=== PATIENT | female | born 1990 | race American Indian/Alaskan Native ===

== ENCOUNTER 2018-07-03 22:36 | Emergency (ER) | payer OTHER ==
--- NOTE | 2018-07-03 22:49 | Emergency Department Report ---
Blank Doc - Documentation Documentation: LIAO started 2 days ago. Recently started on BC, Iron, Ibuprofen. Blurry vision, Photophobia. This initial assessment diagnostic orders/clinical plan/treatment (s) is/Are subject change based on patient's health status, clinical progression and re- assessment by fellow clinical providers in the ED. Further treatment and work-up at subsequent clinical providers discretion. Patient/guardians urged not to elope from their condition may be serious if not clinically assessed and managed. Initial order include:
[2018-07-03 23:32] LABS: HCG Qualitative,Urine Negative (Negative)
--- NOTE | 2018-07-04 00:59 | Cat Scan Report ---
PROCEDURE: CT HEAD/BRAIN WO CON TECHNIQUE: Computerized tomography of the head was performed without contrast material. CT DOSE LENGTH PRODUCT: mGycm HISTORY: LIAO with blurry vision COMPARISONS: None . FINDINGS: Skull and scalp: Normal . Paranasal sinuses: Normal . Ventricles and subarachnoid spaces: Normal . Cerebrum: No evidence of hemorrhage, acute infarction or mass . Cerebellum and brainstem: No evidence of hemorrhage, acute infarction or mass . Vasculature: Normal . IMPRESSION: Normal Examination . This document is electronically signed by Pankaj Castaneda MD., July 04 2018 12:57:16 AM ET
[2018-07-04] MEDS ORDERED: NACL 0.9% 1000 ML 1,000 ML IV ONE (02:17)
[2018-07-04] MEDS ORDERED: BENADRYL IV ONE (02:17)
[2018-07-04] MEDS ORDERED: REGLAN IV ONE (02:17)
[2018-07-04] MEDS ORDERED: DECADRON IV ONE (02:17)
[2018-07-04 02:51] VITALS: BP 150/81
--- NOTE | 2018-07-04 03:12 | Emergency Department Report ---
ED Headache HPI - General Chief Complaint: Headache Stated Complaint: ALLERGIC REACTION Time Seen by Provider: 07/04/18 02:02 Source: patient Exam Limitations: no limitations - History of Present Illness Initial Comments: Patient's is a 28 y/o aaf with hx of asthma headache who presents for frontal headache for 2 days headache rated at 7/10 frontal does not radiate, pt states pain is intermittent exacerbated by movement andf actiivity there is associated photophobia blurred vision , pt denies fall inury or trauma, there is no fever or chills no Timing/Duration: 1 week, unknown Quality: moderate Head Injury Location: frontal Recent Head Trauma: no recent headache/trauma, occasional headaches Modifying Factors: improves with: other (none) Associated Symptoms: fever/chills, seizures, sinus infection. denies: denies symptoms, fatigue, loss of consciousness, nausea/vomiting, nasal congestion, nasal drainage, stiff neck, vision changes, weakness Allergies/Adverse Reactions: Allergies coconut Allergy (Verified 07/03/18 22:54) Hives cyclobenzaprine [From Flexeril] Allergy (Verified 07/03/18 22:53) Anaphylaxis apolinar Allergy (Verified 07/03/18 22:54) Swelling Home Medications: Ambulatory Orders Acetaminophen [Tylenol Extra Strength] 1,000 mg PO QID PRN #30 tablet 07/04/18 Amoxicillin/Potassium Clav [Augmentin 875-125 Tablet] 1 each PO BID #20 tablet 07/04/18 Metoclopramide [Reglan] 10 mg PO ACHS #30 tablet 07/04/18 diphenhydrAMINE [Benadryl CAP] 25 mg PO Q8HR PRN #30 capsule 07/04/18 predniSONE [Deltasone] 40 mg PO QDAY #10 tab 07/04/18 ED Review of Systems ROS: Stated complaint: ALLERGIC REACTION Other details as noted in HPI Constitutional: denies: chills, fever Eyes: denies: eye pain, eye discharge, vision change ENT: denies: ear pain, throat pain Respiratory: denies: cough, shortness of breath, wheezing Cardiovascular: denies: chest pain, palpitations Endocrine: no symptoms reported Gastrointestinal: denies: abdominal pain, nausea, vomiting, diarrhea, constipation, hematemesis, hematochezia Genitourinary: hematuria. denies: urgency, dysuria, discharge Musculoskeletal: denies: back pain, arthralgia, myalgia Skin: as per HPI Neurological: as per HPI Psychiatric: as per HPI Hematological/Lymphatic: denies: easy bleeding, easy bruising ED Past Medical Hx - Past Medical History Hx Asthma: Yes Additional medical history: Irregular menses - Surgical History Additional Surgical History: Left rotator cuff - Social History Smoking Status: Never Smoker Substance Use Type: None - Medications Home Medications: Home Medications Medication Instructions Recorded Confirmed Last Taken Type Acetaminophen [Tylenol Extra 1,000 mg PO QID PRN #30 tablet 07/04/18 Unknown Rx Strength] Amoxicillin/Potassium Clav 1 each PO BID #20 tablet 07/04/18 Unknown Rx [Augmentin 875-125 Tablet] Metoclopramide [Reglan] 10 mg PO ACHS #30 tablet 07/04/18 Unknown Rx diphenhydrAMINE [Benadryl CAP] 25 mg PO Q8HR PRN #30 capsule 07/04/18 Unknown Rx predniSONE [Deltasone] 40 mg PO QDAY #10 tab 07/04/18 Unknown Rx ED Physical Exam - General Limitations: No Limitations General appearance: alert, in no apparent distress - Head Head exam: Present: atraumatic, normocephalic - Eye Eye exam: Present: normal appearance, PERRL, EOMI (O), periorbital swelling - ENT ENT exam: Present: mucous membranes dry, mucous membranes moist, normal external ear exam (no) - Expanded ENT Exam Expanded Ear exam: Present: auricular hematoma Mouth exam: Present: normal external inspection. Absent: trismus Teeth exam: Present: normal inspection Throat exam: Positive: normal inspection, tonsillar erythema. Negative: tonsillomegaly - Neck Neck exam: Present: normal inspection, meningismus. Absent: lymphadenopathy - Respiratory Respiratory exam: Present: normal lung sounds bilaterally. Absent: respiratory distress, wheezes (was a), stridor, chest wall tenderness, accessory muscle use, decreased breath sounds, prolonged expiratory - Cardiovascular Cardiovascular Exam: Present: regular rate, normal rhythm, normal heart sounds. Absent: systolic murmur, diastolic murmur, rubs, gallop - GI/Abdominal GI/Abdominal exam: Present: soft (both), normal bowel sounds. Absent: distended, tenderness, mass, bruit, pulsatile mass - Rectal Rectal exam: Present: deferred - Extremities Exam Extremities exam: Present: normal inspection, full ROM, tenderness, normal capillary refill. Absent: pedal edema, joint swelling - Back Exam Back exam: Present: normal inspection, full ROM. Absent: tenderness, CVA tenderness (R), CVA tenderness (L), muscle spasm, paraspinal tenderness, vertebral tenderness, rash noted - Neurological Exam Neurological exam: Present: alert, oriented X3 - Psychiatric Psychiatric exam: Present: normal affect (physical this month), normal mood - Skin Skin exam: Present: warm (l), dry, intact, normal color. Absent: rash ED Course Vital Signs 07/03/18 07/04/18 22:46 02:50 Temperature 98.6 F 98.6 F Pulse Rate 75 85 Respiratory 20 16 Rate Blood Pressure 138/96 Blood Pressure 150/81 [Left] O2 Sat by Pulse 100 100 Oximetry ED Medical Decision Making - Radiology Data Radiology results: report reviewed, image reviewed PROCEDURE: CT HEAD/BRAIN WO CON TECHNIQUE: Computerized tomography of the head was performed without contrast material. CT DOSE LENGTH PRODUCT: mGycm HISTORY: LIAO with blurry vision COMPARISONS: None . FINDINGS: Skull and scalp: Normal . Paranasal sinuses: Normal . Ventricles and subarachnoid spaces: Normal . Cerebrum: No evidence of hemorrhage, acute infarction or mass . Cerebellum and brainstem: No evidence of hemorrhage, acute infarction or mass . Vasculature: Normal . IMPRESSION: Normal Examination . This document is electronically signed by Ofe Meneses MD., July 04 2018 12:57:16 AM ET Transcribed By: CO Dictated By: OFE MENESES MD Electronically Authenticated By: OFE MENESES MD Signed Date/Time: 07/04/1858 DD/ TD/TT: 07/04/18 0044 - Medical Decision Making this is sinus headache with sinusitis , ct: neg for bleed mass or fracture, pain is improved rom intact photophobia is relived plan dc to home with rx for augmentin, benadryl, reglan, tyelnol, pt will follow u with pcp in 2-3 work pt verbalized agreement and understanding of discharge plan. Critical care attestation.: If time is entered above; I have spent that time in minutes in the direct care of this critically ill patient, excluding procedure time. ED Disposition Clinical Impression: Sinus headache Sinusitis Qualifiers: Sinusitis location: frontal Chronicity: acute Recurrence: recurrent Qualified Code(s): J01.11 - Acute recurrent frontal sinusitis Disposition: TO HOME OR SELFCARE Is pt being admited?: No Does the pt Need Aspirin: No Condition: Stable Instructions: Sinusitis (ED), Acute Headache (ED) Prescriptions: Acetaminophen [Tylenol Extra Strength] 1,000 mg PO QID PRN #30 tablet PRN Reason: Headache Amoxicillin/Potassium Clav [Augmentin 875-125 Tablet] 1 each PO BID #20 tablet diphenhydrAMINE [Benadryl CAP] 25 mg PO Q8HR PRN #30 capsule PRN Reason: Headache Metoclopramide [Reglan] 10 mg PO ACHS #30 tablet predniSONE [Deltasone] 40 mg PO QDAY #10 tab [facility] - [facility]5 Days Forms: Work/School Release Form(ED) Time of Disposition: 03:34
== END 2018-07-04 03:56 | disposition home or self-care (01) ==
LOC: ED 22:36
DX: J32.1 Chronic frontal sinusitis (principal); J45.909 Unspecified asthma, uncomplicated; Z91.018 Allergy to other foods; Z88.8 Allergy status to other drugs, medicaments and biological substances
CPT/HCPCS: 70450; 81025; 96374; 96375; 99284; J1100; J1200; J2765; J7030

== ENCOUNTER 2018-10-31 13:53 | Emergency (ER) | payer OTHER ==
--- NOTE | 2018-10-31 14:04 | Event Note ---
ED Screening Note Date of service: 10/31/18 Time: 14:00 ED Screening Note: This is a 28 y.o. F. that presents to the ER with sore throat, cough, and loss vocals since yesterday. PMH of asthma Her sister was sick and possibly caught something. This initial assessment/diagnostic orders/clinical plan/treatment(s) is/are subject to change based on patients health status, clinical progression and re- assessment by fellow clinical providers in the ED. Further treatment and workup at subsequent clinical providers discretion. Patient/guardian urged not to elope from the ED as their condition may be serious if not clinically assessed and managed. Initial orders include: ACC for further evaluation
[2018-10-31] MEDS ORDERED: DUONEB *Not for PRN Use IH ONE (15:50)
--- NOTE | 2018-10-31 16:49 | Emergency Department Report ---
- General Chief Complaint: Adult Asthma Stated Complaint: ASTHMATIC/CHEST PAIN/COUGH/FEVER Time Seen by Provider: 10/31/18 13:59 Source: patient Mode of arrival: Ambulatory Limitations: No Limitations - History of Present Illness Initial Comments: Patient is a 28-year-old female with a past medical history of asthma who states that she is having a cough and congestion for the past 2-3 days. Patient states that she's had shortness of breath and sore throat. Patient states the pain is worse when she swallows. Patient states she feels that she's lost her voice cannot speak very well. She denies any nausea vomiting diarrhea Or stiffness at this time. Patient states that she's had some chills but has not taken objective temperature. - Related Data Previous Rx's Medication Instructions Recorded Last Taken Type Acetaminophen [Tylenol Extra 1,000 mg PO QID PRN #30 tablet 07/04/18 Unknown Rx Strength] Amoxicillin/Potassium Clav 1 each PO BID #20 tablet 07/04/18 Unknown Rx [Augmentin 875-125 Tablet] Metoclopramide [Reglan] 10 mg PO ACHS #30 tablet 07/04/18 Unknown Rx diphenhydrAMINE [Benadryl CAP] 25 mg PO Q8HR PRN #30 capsule 07/04/18 Unknown Rx predniSONE [Deltasone] 40 mg PO QDAY #10 tab 07/04/18 Unknown Rx ALBUTEROL Inhaler (OR & NICU) 2 puff IH QID PRN #1 inhalation 10/31/18 Unknown Rx [ProAir HFA Inhaler] Azithromycin [Zithromax Z-NEVAEH] 250 mg PO DAILY #6 tablet 10/31/18 Unknown Rx Benzonatate [Tessalon Perles] 100 mg PO Q8HR #10 capsule 10/31/18 Unknown Rx predniSONE [Deltasone] 20 mg PO QDAY #5 tab 10/31/18 Unknown Rx traMADol [Ultram] 50 mg PO Q6HR PRN #12 tablet 10/31/18 Unknown Rx Allergies Allergy/AdvReac Type Severity Reaction Status Date / Time coconut Allergy Hives Verified 10/31/18 13:57 cyclobenzaprine Allergy Anaphylaxis Verified 10/31/18 13:57 [From Flexeril] apolinar Allergy Swelling Verified 10/31/18 13:57 ED Review of Systems ROS: Stated complaint: ASTHMATIC/CHEST PAIN/COUGH/FEVER Other details as noted in HPI Comment: All other systems reviewed and negative ED Past Medical Hx - Past Medical History Hx Asthma: Yes Additional medical history: Irregular menses - Surgical History Additional Surgical History: Left rotator cuff - Social History Smoking Status: Never Smoker - Medications Home Medications: Home Medications Medication Instructions Recorded Confirmed Last Taken Type Acetaminophen [Tylenol Extra 1,000 mg PO QID PRN #30 tablet 07/04/18 Unknown Rx Strength] Amoxicillin/Potassium Clav 1 each PO BID #20 tablet 07/04/18 Unknown Rx [Augmentin 875-125 Tablet] Metoclopramide [Reglan] 10 mg PO ACHS #30 tablet 07/04/18 Unknown Rx diphenhydrAMINE [Benadryl CAP] 25 mg PO Q8HR PRN #30 capsule 07/04/18 Unknown Rx predniSONE [Deltasone] 40 mg PO QDAY #10 tab 07/04/18 Unknown Rx ALBUTEROL Inhaler (OR & NICU) 2 puff IH QID PRN #1 inhalation 10/31/18 Unknown Rx [ProAir HFA Inhaler] Azithromycin [Zithromax Z-NEVAEH] 250 mg PO DAILY #6 tablet 10/31/18 Unknown Rx Benzonatate [Tessalon Perles] 100 mg PO Q8HR #10 capsule 10/31/18 Unknown Rx predniSONE [Deltasone] 20 mg PO QDAY #5 tab 10/31/18 Unknown Rx traMADol [Ultram] 50 mg PO Q6HR PRN #12 tablet 10/31/18 Unknown Rx ED Physical Exam - General Limitations: No Limitations General appearance: alert, in no apparent distress - Head Head exam: Present: atraumatic, normocephalic - Eye Eye exam: Present: normal appearance - ENT ENT exam: Present: mucous membranes moist - Expanded ENT Exam Expanded Mouth exam: Present: tongue normal. Absent: tongue elevation Throat exam: Positive: tonsillar erythema. Negative: tonsillomegaly, tonsillar exudate - Neck Neck exam: Present: normal inspection - Respiratory Respiratory exam: Present: normal lung sounds bilaterally, prolonged expiratory. Absent: respiratory distress, wheezes, rales, rhonchi - Cardiovascular Cardiovascular Exam: Present: regular rate, normal rhythm, normal heart sounds. Absent: systolic murmur, diastolic murmur, rubs, gallop - GI/Abdominal GI/Abdominal exam: Present: soft, normal bowel sounds. Absent: distended, tenderness, guarding, rebound - Extremities Exam Extremities exam: Present: normal inspection - Back Exam Back exam: Present: normal inspection - Neurological Exam Neurological exam: Present: alert, oriented X3 - Psychiatric Psychiatric exam: Present: normal affect, normal mood - Skin Skin exam: Present: warm, dry, intact, normal color. Absent: rash ED Course Vital Signs 10/31/18 10/31/18 13:59 16:43 Temperature 99.4 F Pulse Rate 85 74 Respiratory 20 17 Rate Blood Pressure 147/95 Blood Pressure 119/83 [Right] O2 Sat by Pulse 100 100 Oximetry ED Medical Decision Making - Radiology Data Radiology results: report reviewed (CXR WNL) - Medical Decision Making Patient is given a breathing treatment for symptom relief. Patient will be discharged home with treatment for tonsillitis and acute bronchitis Critical care attestation.: If time is entered above; I have spent that time in minutes in the direct care of this critically ill patient, excluding procedure time. ED Disposition Clinical Impression: Acute upper respiratory infection, Acute bacterial tonsillitis Disposition: DC-01 TO HOME OR SELFCARE Is pt being admited?: No Does the pt Need Aspirin: No Condition: Stable Instructions: Acute Bronchitis (ED) Referrals: AUBRIE EUCEDA MD [Primary Care Provider] - 3-5 Days
--- NOTE | 2018-10-31 17:01 | XRay Report ---
PROCEDURE: XR CHEST ROUTINE 2V TECHNIQUE: PA and lateral chest radiographs were obtained. HISTORY: cough COMPARISONS: None. FINDINGS: Heart: Normal. Mediastinum/Vessels: Normal. Lungs/Pleural space: Normal. Bony thorax: No acute osseous abnormality. IMPRESSION: Normal examination. This document is electronically signed by Jose G Gaming MD., October 31 2018 04:59:06 PM ET
[2018-10-31 17:14] VITALS: BP 110/69
== END 2018-10-31 17:12 | disposition home or self-care (01) ==
LOC: ED 13:53
DX: J06.9 Acute upper respiratory infection, unspecified (principal); J03.90 Acute tonsillitis, unspecified; J45.909 Unspecified asthma, uncomplicated; Z79.899 Other long term (current) drug therapy; Z88.8 Allergy status to other drugs, medicaments and biological substances; Z91.018 Allergy to other foods
CPT/HCPCS: 71046; 94640; 99283

== ENCOUNTER 2018-11-28 10:35 | Emergency (ER) | payer OTHER ==
--- NOTE | 2018-11-28 11:02 | Emergency Department Report ---
Upper Extremity - HPI Chief Complaint: Shoulder Injury Stated Complaint: R SHOULDER PAIN Time Seen by Provider: 11/28/18 10:49 Other History: Patient is a 28-year-old female who presents to emergency room with complaints of right shoulder pain that began a week ago. she states that one morning she just woke up with the pain. She denies any fall or injury. She does not report any numbness or weakness. She currently has her arm in a sling. Pt was seen by [facility] and states she had a normal XR of her shoulder yesterday. she states she was given ibuprofen 800 mg and zanflex and she is still having pain. she states she is not able to see an orthopedic doctor until december. she states that she had rotator cuff surgery on the left shoulder. the patient states that she does do heavy lifting weekly. LNMP november 13. PMHx asthma. allergy: flexeril. ED Review of Systems ROS: Stated complaint: R SHOULDER PAIN Other details as noted in HPI Comment: All other systems reviewed and negative ED Past Medical Hx - Past Medical History Previous Medical History?: Yes Hx Asthma: Yes Additional medical history: Irregular menses - Surgical History Past Surgical History?: Yes Additional Surgical History: Left rotator cuff - Social History Smoking Status: Never Smoker Substance Use Type: None - Medications Home Medications: Home Medications Medication Instructions Recorded Confirmed Last Taken Type Acetaminophen [Tylenol Extra 1,000 mg PO QID PRN #30 tablet 07/04/18 Unknown Rx Strength] Amoxicillin/Potassium Clav 1 each PO BID #20 tablet 07/04/18 Unknown Rx [Augmentin 875-125 Tablet] Metoclopramide [Reglan] 10 mg PO ACHS #30 tablet 07/04/18 Unknown Rx diphenhydrAMINE [Benadryl CAP] 25 mg PO Q8HR PRN #30 capsule 07/04/18 Unknown Rx predniSONE [Deltasone] 40 mg PO QDAY #10 tab 07/04/18 Unknown Rx ALBUTEROL Inhaler (OR & NICU) 2 puff IH QID PRN #1 inhalation 10/31/18 Unknown Rx [ProAir HFA Inhaler] Azithromycin [Zithromax Z-NEVAEH] 250 mg PO DAILY #6 tablet 10/31/18 Unknown Rx Benzonatate [Tessalon Perles] 100 mg PO Q8HR #10 capsule 10/31/18 Unknown Rx predniSONE [Deltasone] 20 mg PO QDAY #5 tab 10/31/18 Unknown Rx traMADol [Ultram] 50 mg PO Q6HR PRN #12 tablet 10/31/18 Unknown Rx Acetaminophen/Codeine [Tylenol 1 tab PO Q6H PRN #12 tab 11/28/18 Unknown Rx /Codeine # 3 tab] Upper Extremity Exam - Exam General: Vital signs noted. No distress. Alert and acting appropriately. Head and Torso: No HEENT Abnormality, No Neck Tenderness, No Chest/Lungs Abnormality Shoulder Exam: Yes Shoulder Tenderness (pt has TTP throughout the right shoulder), Yes Normal Range of Motion in Shoulder, No Clavicle Tenderness, No Shoulder Deformity, No AC Joint Tenderness Arm Exam: No Arm/Humerus Tenderness, No Arm Deformity Elbow: Yes Normal Range of Motion in Elbow, No Elbow Tenderness, No Elbow Deformity Forearm: No Forearm Tenderness, No Forearm Deformity, No Pain with Pronation, No Pain with Supination Wrist: Yes Normal ROM in Wrist, No Wrist Tenderness, No Wrist Deformity, No Snuffbox Tenderness, No Pain with Axial Thumb Compression Hand: Yes Normal ROM in Digit(s), No Hand Tenderness, No Hand Deformity, No Digit Tenderness, No Digit(s) Deformity, No Tendon Dysfunction CMS Exam: Yes Normal Distal Pulses, Yes Normal Capillary Refill, Yes Normal Distal Sensation, No Broken Skin ED Course Vital Signs 11/28/18 10:42 Temperature 98.3 F Pulse Rate 62 Respiratory 18 Rate Blood Pressure 137/99 O2 Sat by Pulse 100 Oximetry ED Medical Decision Making - Medical Decision Making Patient is a 28-year-old female who presents to emergency room with complaints of right shoulder pain that began a week ago. she states that one morning she just woke up with the pain. She denies any fall or injury. She does not report any numbness or weakness. She currently has her arm in a sling. Pt was seen by [facility] and states she had a normal XR of her shoulder yesterday. she states she was given ibuprofen 800 mg and zanflex and she is still having pain. she states she is not able to see an orthopedic doctor until december. she states that she had rotator cuff surgery on the left shoulder. the patient states that she does do heavy lifting weekly. LNMP november 13. PMHx asthma. allergy: flexeril. on exam: pt has TTP throughout the right shoulder, FROM of the right shoulder, neurovascularly intact. pt given prescription for tylenol with codeine for severe pain. advised to only use when pain is severe and the ibuprofen 800 mg is not working. discussed to please take medication as prescribed. do not drive or operate heavy machinery while taking pain medication. follow up with an orthopedic doctor in the next 2-3 days. return to the emergency room for any new or worsening symptoms. - Differential Diagnosis strain, sprain, rotator cuff, tendonitis Critical care attestation.: If time is entered above; I have spent that time in minutes in the direct care of this critically ill patient, excluding procedure time. ED Disposition Clinical Impression: Right shoulder pain Qualifiers: Chronicity: acute Qualified Code(s): M25.511 - Pain in right shoulder Disposition: - TO HOME OR SELFCARE Is pt being admited?: No Does the pt Need Aspirin: No Condition: Stable Instructions: Shoulder Sprain (ED) Additional Instructions: please take medication as prescribed. do not drive or operate heavy machinery while taking pain medication. follow up with an orthopedic doctor in the next 2- 3 days. return to the emergency room for any new or worsening symptoms. Prescriptions: Acetaminophen/Codeine [Tylenol /Codeine # 3 tab] 1 tab PO Q6H PRN #12 tab PRN Reason: Pain , Severe (7-10) Referrals: SOBIA MADISON MD [Staff Physician] - 2-3 Days Time of Disposition: 11:02 Print Language: GREENLAND[place]
[2018-11-28 11:27] VITALS: BP 134/90
== END 2018-11-28 11:19 | disposition home or self-care (01) ==
LOC: ED 10:35
DX: M25.511 Pain in right shoulder (principal); J45.909 Unspecified asthma, uncomplicated
CPT/HCPCS: 99282

== ENCOUNTER 2020-12-01 10:34 | Emergency (ER) | payer OTHER ==
[2020-12-01 11:32] VITALS: BP 139/86
--- NOTE | 2020-12-01 14:02 | Emergency Department Report ---
ED Headache HPI - General Chief Complaint: Headache Stated Complaint: HEADACHE/NAUSEA/BP 161/80 Time Seen by Provider: 12/01/20 13:28 Source: patient - History of Present Illness Initial Comments: 30-year-old female with past medical history of hypotension and asthma presents to the ER today with complaints of headache and dizziness. Patient states that she has been having a headache for the past 5 days. She states that the headache is frontal and radiates down to the occipital aspect of her head and down into her neck and she is also having similar headaches to the left parietal head. She states that the headache has been intermittent and she describes it as pressure. She reports associated photophobia and she states that yesterday she started with dizziness. She described as a spinning se nsation with associated nausea. She states that the dizziness is worse when she moves her head or when she stands up and walk but improves when she is at rest. She denies any history of headaches. She states she has a history of allergies for which she takes Claritin and Flonase but denies any denies any recent significant URI symptoms, fever or chills. She denies any blurry vision, speech changes, or focal weakness. She states that when her headache first started, her aunt gave her Excedrin which did improve the headache but she did not continue taking the Excedrin. She did take Tylenol Saturday night before going to bed but did not notice if it helped because she went straight to bed but when she woke up the next day she continued to have the headache. She states that while she was at work this morning they checked her blood pressure and it was 161/80. She denies any known history of hypertension. She states that she struck her head accidentally about 2 weeks ago when she was at work. She states that she struck the top of her head on a metal shelf when she was moving from a bending to standing position. She states that at that time she did not have any symptoms and there was no LOC. She also reports that this morning she started having sharp tingling pain in her chest but underneath both breasts. She states they seem to be hurt worse when she touches the area when she moves. She has a history of asthma and has chronic shortness of breath with asthma denies any worsening asthma symptoms or shortness of breath since this started. She reports no calf pain or lower extremity swelling. She denies any history of heart disease, PE or DVT. Timing/Duration: other (5 days ago ) Quality: moderate, pressure Allergies/Adverse Reactions: Allergies coconut Allergy (Verified 12/01/20 11:28) Hives cyclobenzaprine [From Flexeril] Allergy (Verified 10/31/18 13:57) Anaphylaxis apolinar Allergy (Verified 12/01/20 11:28) Swelling Home Medications: Ambulatory Orders Albuterol Mdi (or & Nicu Only) [ProAir HFA Inhaler] 2 puff IH QID PRN #1 inhalation 10/31/18 Butalb/Acetamin/Caff 50-325-40 [Fioricet 50-325-40] 1 tab PO Q6HR PRN #15 tab 12/01/20 Meclizine [Antivert] 25 mg PO TID PRN #30 tablet 12/01/20 Ondansetron [Zofran Odt] 4 mg PO Q8HR PRN #15 tab.rapdis 12/01/20 ED Review of Systems ROS: Stated complaint: HEADACHE/NAUSEA/BP 161/80 Other details as noted in HPI Comment: All other systems reviewed and negative Constitutional: denies: chills, fever Eyes: denies: eye pain, eye discharge, vision change ENT: denies: ear pain, throat pain, dental pain, hearing loss, epistaxis, congestion Respiratory: denies: cough, orthopnea, shortness of breath, SOB with exertion, SOB at rest, wheezing Cardiovascular: chest pain. denies: palpitations, dyspnea on exertion, orthopnea, edema, syncope, paroxysmal nocturnal dyspnea Gastrointestinal: denies: abdominal pain, nausea, diarrhea, constipation, hematemesis, hematochezia Genitourinary: denies: urgency, dysuria, frequency, hematuria, discharge, abnormal menses, dyspareunia Musculoskeletal: denies: back pain, joint swelling, arthralgia, myalgia Skin: denies: rash, lesions, change in color, change in hair/nails, pruritus Neurological: headache, vertigo. denies: weakness, numbness, paresthesias Psychiatric: denies: anxiety, depression, auditory hallucinations, visual hallucinations, homicidal thoughts, suicidal thoughts Hematological/Lymphatic: denies: easy bleeding, easy bruising, swollen glands ED Past Medical Hx - Past Medical History Hx Asthma: Yes Additional medical history: Irregular menses - Surgical History Additional Surgical History: Left rotator cuff - Social History Smoking Status: Never Smoker Substance Use Type: None - Medications Home Medications: Home Medications Medication Instructions Recorded Confirmed Last Taken Type Albuterol Mdi (or & Nicu Only) 2 puff IH QID PRN #1 inhalation 10/31/18 Unknown Rx [ProAir HFA Inhaler] Butalb/Acetamin/Caff 50-325-40 1 tab PO Q6HR PRN #15 tab 12/01/20 Unknown Rx [Fioricet 50-325-40] Meclizine [Antivert] 25 mg PO TID PRN #30 tablet 12/01/20 Unknown Rx Ondansetron [Zofran Odt] 4 mg PO Q8HR PRN #15 tab.rapdis 12/01/20 Unknown Rx ED Physical Exam - General Limitations: No Limitations General appearance: alert, in no apparent distress - Head Head exam: Present: atraumatic, normocephalic, normal inspection - Eye Eye exam: Present: normal appearance, PERRL, EOMI Pupils: Present: normal accommodation, other (+ Photophobia) - ENT ENT exam: Present: normal exam, mucous membranes moist, TM's normal bilaterally - Neck Neck exam: Present: normal inspection, full ROM. Absent: meningismus - Respiratory Respiratory exam: Present: normal lung sounds bilaterally, chest wall tenderness (Tenderness to palpation to the chest wall underneath both breast reproducing her chest pain). Absent: respiratory distress, wheezes, rales, rhonchi, stridor - Cardiovascular Cardiovascular Exam: Present: regular rate, normal rhythm, normal heart sounds - GI/Abdominal GI/Abdominal exam: Present: soft. Absent: distended, tenderness, guarding, rebound - Extremities Exam Extremities exam: Present: normal inspection, full ROM. Absent: tenderness, calf tenderness - Neurological Exam Neurological exam: Present: alert, oriented X3, CN II-XII intact, normal gait. Absent: motor sensory deficit - Expanded Neurological Exam Expanded Patient oriented to: Present: person, place, time Speech: Present: fluid speech Cranial nerves: EOM's Intact: Normal, Gag Reflex: Normal Sensory exam: Upper Extremity Light Touch: Normal, Upper Extremity Temperature: Normal, Lower Extremity Light Touch: Normal, Lower Extremity Temperature: Normal Motor strength exam: RUE: 5, LUE: 5, RLE: 5, LLE: 5 Best Eye Response (Jeremy): (4) open spontaneously Best Motor Response (Pax): (6) obeys commands Best Verbal Response (Pax): (5) oriented Jeremy Total: 15 - Psychiatric Psychiatric exam: Present: normal affect, normal mood - Skin Skin exam: Present: intact ED Course Vital Signs 12/01/20 11:31 Temperature 98.9 F Pulse Rate 89 Respiratory 18 Rate Blood Pressure 139/86 O2 Sat by Pulse 100 Oximetry ED Medical Decision Making - Lab Data Result diagrams: 12/01/20 14:18 12/01/20 14:18 - EKG Data EKG shows normal: sinus rhythm (77) Rate: normal - EKG Data Interpretation: normal EKG - Radiology Data Radiology results: report reviewed Patient: WAYLON QUIÑONES MR#: [id number] : 1990 A cct:[id number] Age/Sex: 30 / F ADM Date: 12/01/20 Loc: ED Attending Dr: Ordering Physician: ANTHONY SALOMON Date of Service: 12/01/20 Procedure(s): XR chest routine 2V Accession Number(s): [id number] cc: ANTHONY SALOMON Fluoro Time In Minutes: XR chest routine 2V INDICATION / CLINICAL INFORMATION: Chest pain COMPARISON: October 2018 FINDINGS: SUPPORT DEVICES: None. HEART / MEDIASTINUM: No significant abnormality. LUNGS / PLEURA: Lungs are clear. Costophrenic sulci are sharp. No pneumothorax. ADDITIONAL FINDINGS: No significant additional findings. IMPRESSION: 1. No acute findings. Signer Name: Oracio Ramirez MD Signed: 12/01/2020 3:41 PM Workstation Name: [id number] Transcribed By: CS Dictated By: Oracio Ramirez MD Electronically Authenticated By: Oracio Ramirez MD Signed Date/Time: 12/01/20 154 DD/ 39 TD/TT: - Medical Decision Making 1643; patient currently resting comfortably in the bed. She does not appear to be in any acute distress. Patient has been observed ambulating in the ER with a normal gait. She has no focal neurological deficits on exam. She is not toxic or ill-appearing. Her vital signs are stable. Labs reviewed and unremarkable. EKG shows no acute ischemic changes, STEMI or significant dysrhythmias. Chest x-ray shows nothing acute. Discussed all results with patient. Suspect that headache could be related to migraines and her dizziness could be related to vertigo which can be triggered by her eustachian tube dysfunction from allergies and does have reproducible chest tenderness and therefore I suspect that her ch est pain is more musculoskeletal at this time. Patient had a similar complaint back in July 2018 when she was seen here. Review of that visit showed that she had a head CT which was negative and she was discharged home in stable condition. There is no indication for repeat CT at this time. Her history, exam, diagnostic testing and the patient's current condition does not suggest meningitis, stroke, sepsis, subarachnoid hemorrhage, intracranial bleeding, encephalitis, PE/ACS or other significant pathology to warrant further testing, continued ED treatment, admission, neurological/cardiology consultation or other specialist evaluation at this point. I recommend to patient that she needs to follow-up with primary care doctor as well as a neurologist especially if her symptoms persist or becomes recurrent and frequent. She may also need to see ENT specialist. Patient expressed understanding of instructions and agree with plan. Patient was stable at time of discharge. Critical care attestation.: If time is entered above; I have spent that time in minutes in the direct care of this critically ill patient, excluding procedure time. ED Disposition Clinical Impression: Vertigo, Headache, Migraine, Eustachian tube dysfunction, Chest wall pain Disposition: DC-01 TO HOME OR SELFCARE Is pt being admited?: No Does the pt Need Aspirin: No Condition: Stable Instructions: Migraine Headache, [id number], Eustachian Tube Dysfunction, Dizziness, [id number], Nonspecific Chest Pain, Adult, Chest Wall Pain Additional Instructions: Take the fioricet and nausea as prescribed to help with headache and nausea.. Take the meclizine as needed for dizziness. I recommend that you continue taking your claritin at night and flonase in morning. You can Nasacort nasal spray from [id number] since you have been using the Flonase for a while. Follow-up with the primary care doctor and also the neurologist listed on your discharge instructions. Return to the ER if your symptoms changes or worsens in any way. Prescriptions: Meclizine [Antivert] 25 mg PO TID PRN #30 tablet PRN Reason: Vertigo Butalb/Acetamin/Caff 50-325-40 [Fioricet 50-325-40] 1 tab PO Q6HR PRN #15 tab PRN Reason: Headache Ondansetron [Zofran Odt] 4 mg PO Q8HR PRN #15 tab.rapdis PRN Reason: nausea/vomiting Referrals: [facility] [Provider Group] - 3-5 Days (Primary Care Physician ) AUBRIE EUCEDA MD [Staff Physician] - 3-5 Days (Primary Care pHysician ) [facility] [Provider Group] - 3-5 Days ([address] [place] [id number] ) Forms: Work/School Release Form(ED) Time of Disposition: 16:40
[2020-12-01] MEDS ORDERED: SODIUM CHLORIDE 0.9% 1000 ML 1,000 ML IV ONE (14:04)
[2020-12-01] MEDS ORDERED: diphenhydrAMINE 50 MG/ML VIAL IV ONE (14:04)
[2020-12-01] MEDS ORDERED: METOCLOPRAMIDE 10 MG/2 ML INJ IV ONE (14:04)
[2020-12-01 15:02] LABS: Hematocrit 35.5 % (30.3-42.9); Hemoglobin 11.7 gm/dl (10.1-14.3); Mean Corpuscular HGB Conc 33 % (30-34); Mean Corpuscular Volume 82 fl (79-97); Platelet Count 225 K/mm3 (140-440); Red Blood Count 4.31 M/mm3 (3.65-5.03); Red Cell Distribution Width 13.6 % (13.2-15.2)
[2020-12-01 15:10] LABS: Basophils % (Auto) 0.7 % (0.0-1.8); Eosinophils % (Auto) 1.1 % (0.0-4.3); Lymphocytes # (Auto) 1.5 K/mm3 (1.2-5.4); Lymphocytes % (Auto) 35.4 % (13.4-35.0); Monocytes # (Auto) 0.2 K/mm3 (0.0-0.8); Monocytes % (Auto) 5.5 % (0.0-7.3)
[2020-12-01 15:25] LABS: Alanine Aminotransferase 23 units/L (7-56); Albumin 4.4 g/dL (3.9-5); BUN/Creatinine Ratio 8; Blood Urea Nitrogen 4 mg/dL (7-17); Calcium 9.3 mg/dL (8.4-10.2); Hemolysis Index 85
--- NOTE | 2020-12-01 15:45 | XRay Report ---
XR chest routine 2V INDICATION / CLINICAL INFORMATION: Chest pain COMPARISON: October 2018 FINDINGS: SUPPORT DEVICES: None. HEART / MEDIASTINUM: No significant abnormality. LUNGS / PLEURA: Lungs are clear. Costophrenic sulci are sharp. No pneumothorax. ADDITIONAL FINDINGS: No significant additional findings. IMPRESSION: 1. No acute findings. Signer Name: Oracio Ramirez MD Signed: 12/01/2020 3:41 PM Workstation Name: [id number]
[2020-12-01 16:29] LABS: Bilirubin,Urine NEG (Negative); Blood,Urine NEG (Negative); Color,Urine Yellow (Yellow); Mucus,Urine FEW /HPF; Protein,Urine <15 mg/dL mg/dL (Negative); Urobilinogen,Urine < 2.0 mg/dL (<2.0)
--- NOTE | 2020-12-02 17:50 | Electrocardiograph Report ---
[facility] Test Date: 2020-12-01 Test Time: 15:03:43 Pat Name: WAYLON QUIÑONES Department: Room: Gender: F [employer]: FRANCHESCA : 1990 Requested By: ANTHONY SALOMON Order Number: [id number] Reading MD: Shorty Tomlinson Measurements Intervals [place] Rate: 77 P: 52 TX: 147 QRS: 55 QRSD: 62 T: 20 QT: 358 QTc: 404 Interpretive Statements Sinus rhythm Nonspecific T abnormalities, anterior leads No previous ECG available for comparison Electronically Signed On 12-02-2020 17:50:51 EDT by Shorty Tomlinson
== END 2020-12-01 16:55 | disposition home or self-care (01) ==
LOC: ED 10:34
DX: G43.909 Migraine, unspecified, not intractable, without status migrainosus (principal); R42 Dizziness and giddiness; R07.89 Other chest pain; T83.89XA Other specified complication of genitourinary prosthetic devices, implants and grafts, initial encounter
CPT/HCPCS: 36415; 71046; 80053; 81001; 83735; 84484; 84703; 85025; 93005; 96361; 96374; 96375; 99284; J1200; J2765; J7030

== ENCOUNTER 2020-12-07 19:21 | Emergency (ER) | payer OTHER ==
[2020-12-07] MEDS ORDERED: ASPIRIN 325 MG TAB PO ONE (19:26)
[2020-12-07 19:27] VITALS: BP 144/98
--- NOTE | 2020-12-07 19:35 | Event Note ---
ED Screening Note Date of service: 12/07/20 Time: 19:33 ED Screening Note: 80-year-old female with a past medical history of asthma and a history of costochondritis presents to the ER today with complaints of left-sided chest pain. She states that it started 2 days ago. He stated has been constant and feels like a squeezing pain. She reports associated shortness of breath and she states that the pain does get worse when she takes a deep breath sometimes. She states that she did use her albuterol inhaler 2 hours ago and she has been using it about 1-2 times per day since she has been having this pain but without much relief. She states that she did have some pain in her left calf 2 days ago but she denies any swelling. She denies any tobacco use, marijuana use or any other illicit drug use. She denies any history of coronary artery disease. She denies any risk factors for PE/DVT Patient was noted to have a heart rate of 130 in triage, but at the time she was given the EKG showed sinus tach with a heart rate of 109. Patient does appear to be anxious but also uncomfortable holding her left chest. This initial assessment/diagnostic orders/clinical plan/treatment(s) is/are subject to change based on patients health status, clinical progression and re- assessment by fellow clinical providers in the ED. Further treatment and workup at subsequent clinical providers discretion. Patient/guardian urged not to elope from the ED as their condition may be serious if not clinically assessed and managed. Initial orders include: Chest pain order set
[2020-12-07 19:58] LABS: Basophils % (Auto) 0.5 % (0.0-1.8); Eosinophils % (Auto) 0.6 % (0.0-4.3); Hematocrit 36.1 % (30.3-42.9); Lymphocytes # (Auto) 2.5 K/mm3 (1.2-5.4); Lymphocytes % (Auto) 34.4 % (13.4-35.0); Mean Corpuscular HGB Conc 33 % (30-34); Mean Corpuscular Volume 83 fl (79-97); Monocytes # (Auto) 0.4 K/mm3 (0.0-0.8); Platelet Count 203 K/mm3 (140-440); Red Blood Count 4.35 M/mm3 (3.65-5.03); Red Cell Distribution Width 13.9 % (13.2-15.2)
[2020-12-07 20:19] LABS: Alanine Aminotransferase 23 units/L (7-56); Albumin 4.2 g/dL (3.9-5); Blood Urea Nitrogen 8 mg/dL (7-17); Calcium 9.3 mg/dL (8.4-10.2); Hemolysis Index 19
[2020-12-07 20:50] LABS: BUN/Creatinine Ratio 11
--- NOTE | 2020-12-07 20:53 | XRay Report ---
CHEST 2 VIEWS INDICATION / CLINICAL INFORMATION: SOB and chest pain. COMPARISON: 12/01/2020 FINDINGS: SUPPORT DEVICES: None. HEART / MEDIASTINUM: No significant abnormality. LUNGS / PLEURA: No significant pulmonary or pleural abnormality. No pneumothorax. ADDITIONAL FINDINGS: No significant additional findings. IMPRESSION: 1. No acute findings. Signer Name: Floyd Pablo MD Signed: 12/07/2020 8:49 PM Workstation Name: [id number]
--- NOTE | 2020-12-07 22:56 | Emergency Department Report ---
ED Chest Pain HPI - General Chief Complaint: Chest Pain Stated Complaint: SOB/CHEST PAIN Time Seen by Provider: 12/07/20 22:36 Source: patient Mode of arrival: Ambulatory Limitations: No Limitations - History of Present Illness Initial Comments: 30-year-old female with a past medical history of asthma and a history of costochondritis presents to the ER today with complaints of left-sided chest pain. She states that it started 2 days ago. He stated has been constant and feels like a squeezing pain. She reports associated shortness of breath and she states that the pain does get worse when she takes a deep breath sometimes. She states that she did use her albuterol inhaler 2 hours ago and she has been using it about 1-2 times per day since she has been having this pain but without much relief. She states that she did have some pain in her left calf 2 days ago but she denies any swelling. Patient reports that the pain in her chest feels like it is being squeezed and is located midsternal. Patient states that she noticed some swelling in her chest wall. She denies any tobacco use, marijuana use or any other illicit drug use. She denies any history of coronary artery disease. She denies any risk factors for PE/DVT Patient was noted to have a heart rate of 130 in triage, but at the time she was given the EKG showed sinus tach with a heart rate of 109. Patient does appear to be anxious but also uncomfortable holding her left chest. Recheck pulse ox 100% on room air heart rate 84 bpm. MD Complaint: chest pain Onset/Timin -: days(s) Onset: during rest, during exertion Pain Location: substernal, left chest Pain Radiation: none Severity: severe Severity scale (0 -10): 9 Quality: tightness Consistency: constant Improves With: nothing Worsens With: exertion, inspiration re: nausea. denies: vomting, diaphoresis, dyspnea, sense of impending doom Other Symptoms: denies: cough, fever, syncope, rash, acid taste in mouth, leg swelling, palpitations, burping Treatments Prior to Arrival: none Aspirin use within the Past 7 Days: (0) No - Related Data On Oral Contraceptives: No Previous Rx's Medication Instructions Recorded Last Taken Type Albuterol Mdi (or & Nicu Only) 2 puff IH QID PRN #1 inhalation 10/31/18 Unknown Rx [ProAir HFA Inhaler] Butalb/Acetamin/Caff 50-325-40 1 tab PO Q6HR PRN #15 tab 12/01/20 Unknown Rx [Fioricet 50-325-40] Meclizine [Antivert] 25 mg PO TID PRN #30 tablet 12/01/20 Unknown Rx Ondansetron [Zofran Odt] 4 mg PO Q8HR PRN #15 tab.rapdis 12/01/20 Unknown Rx Naproxen [Naprosyn TAB] 500 mg PO BID #20 tablet 12/08/20 Unknown Rx Prednisone [predniSONE 5 mg (6-Day 5 mg PO .TAPER #1 tab.ds.pk 12/08/20 Unknown Rx Pack, 21 Tabs)] Allergies Allergy/AdvReac Type Severity Reaction Status Date / Time coconut Allergy Hives Verified 12/01/20 11:28 cyclobenzaprine Allergy Anaphylaxis Verified 10/31/18 13:57 [From Flexeril] apolinar Allergy Swelling Verified 12/01/20 11:28 Heart Score - HEART Score History: Slightly suspicious EKG: Normal Age: < 45 Risk factors: No known risk factors Troponin: < normal limit HEART Score: 0 - EKG Read Time Time EKG Completed: 19:30 EKG Read Time: 19:34 - Critical Actions Critical Actions: 0-3 pts:0.9-1.7%risk of adverse cardiac event.Candidate for discharge ED Review of Systems ROS: Stated complaint: SOB/CHEST PAIN Other details as noted in HPI Comment: All other systems reviewed and negative ED Past Medical Hx - Past Medical History Previous Medical History?: Yes Hx Asthma: Yes Additional medical history: Irregular menses, Costochondrosis - Surgical History Past Surgical History?: Yes Additional Surgical History: Left rotator cuff - Social History Smoking Status: Never Smoker Substance Use Type: None - Medications Home Medications: Home Medications Medication Instructions Recorded Confirmed Last Taken Type Albuterol Mdi (or & Nicu Only) 2 puff IH QID PRN #1 inhalation 10/31/18 Unknown Rx [ProAir HFA Inhaler] Butalb/Acetamin/Caff 50-325-40 1 tab PO Q6HR PRN #15 tab 12/01/20 Unknown Rx [Fioricet 50-325-40] Meclizine [Antivert] 25 mg PO TID PRN #30 tablet 12/01/20 Unknown Rx Ondansetron [Zofran Odt] 4 mg PO Q8HR PRN #15 tab.rapdis 12/01/20 Unknown Rx Naproxen [Naprosyn TAB] 500 mg PO BID #20 tablet 12/08/20 Unknown Rx Prednisone [predniSONE 5 mg (6-Day 5 mg PO .TAPER #1 tab.ds.pk 12/08/20 Unknown Rx Pack, 21 Tabs)] ED Physical Exam - General Limitations: No Limitations General appearance: alert, other (Patient appears to be uncomfortable) - Head Head exam: Present: atraumatic, normocephalic - Eye Eye exam: Present: normal appearance - ENT ENT exam: Present: mucous membranes moist, normal external ear exam - Neck Neck exam: Present: normal inspection - Respiratory Respiratory exam: Present: normal lung sounds bilaterally, chest wall tenderness. Absent: accessory muscle use - Cardiovascular Cardiovascular Exam: Present: regular rate (Heart rate 84) - GI/Abdominal GI/Abdominal exam: Present: soft. Absent: distended - Extremities Exam Extremities exam: Present: normal inspection, full ROM - Back Exam Back exam: Present: normal inspection, full ROM - Neurological Exam Neurological exam: Present: alert, oriented X3 - Psychiatric Psychiatric exam: Present: normal affect, normal mood - Skin Skin exam: Present: warm, dry, intact, normal color. Absent: rash ED Course Vital Signs 12/07/20 12/07/20 12/07/20 19:24 19:34 23:17 Temperature 99.5 F Pulse Rate 130 H 109 H 84 Respiratory 16 20 16 Rate Blood Pressure 144/98 O2 Sat by Pulse 100 100 100 Oximetry ED Medical Decision Making - Lab Data Result diagrams: 12/07/20 19:39 12/07/20 19:39 - Radiology Data Radiology results: report reviewed Study Comments [facility] [address] [place] [address] XRay Report Signed Patient: WAYLON QUIÑONES MR#: [id number] : 1990 Acct:[id number] Age/Sex: 30 / F ADM Date: 12/07/20 Loc: ED Attending Dr: Ordering Physician: ED MD MAUREEN Date of Service: 12/07/20 Procedure(s): XR chest routine 2V Accession Number(s): [id number] cc: ED DOC, Fluoro Time In Minutes: CHEST 2 VIEWS INDICATION / CLINICAL INFORMATION: SOB and chest pain. COMPARISON: 12/01/2020 FINDINGS: SUPPORT DEVICES: None. HEART / MEDIASTINUM: No significant abnormality. LUNGS / PLEURA: No significant pulmonary or pleural abnormality. No pneumothorax. ADDITIONAL FINDINGS: No significant additional findings. IMPRESSION: 1. No acute findings. Signer Name: Floyd Pablo MD Signed: 12/07/2020 8:49 PM Workstation Name: [id number] Transcribed By: HILLARY Dictated By: Floyd Pablo MD Electronically Authenticated By: Floyd Pablo MD Signed Date/Time: 12/07/202048 DD/ 47 TD/TT: - Medical Decision Making 30-year-old female with a past medical history of asthma and a history of costochondritis presents to the ER today with complaints of left-sided chest pain. She states that it started 2 days ago. He stated has been constant and feels like a squeezing pain. She reports associated shortness of breath and she states that the pain does get worse when she takes a deep breath sometimes. She states that she did use her albuterol inhaler 2 hours ago and she has been using it about 1-2 times per day since she has been having this pain but without much relief. She states that she did have some pain in her left calf 2 days ago but she denies any swelling. Patient reports that the pain in her chest feels like it is being squeezed and is located midsternal. Patient states that she noticed some swelling in her chest wall. She denies any tobacco use, marijuana use or any other illicit drug use. She denies any history of coronary artery disease. She denies any risk factors for PE/DVT Patient was noted to have a heart rate of 130 in triage, but at the time she was given the EKG showed sinus tach with a heart rate of 109. Patient does appear to be anxious but also uncomfortable holding her left chest. Recheck pulse ox 100% on room air heart rate 84 bpm. Patient has a normal CBC negative troponin potassium 3.4 - test EKG showed sinus tachycardia. Patient has been reevaluated her heart rate is 84 and 100% on room air. Ordered Toradol 30 mg IM dexamethasone 10 mg IM. Patient be continue to monitor after medication and see if there is any improvement. Patient reports she feels much better after having the steroids and Toradol. Will for discharge. Critical care attestation.: If time is entered above; I have spent that time in minutes in the direct care of this critically ill patient, excluding procedure time. ED Disposition Clinical Impression: Costochondritis, acute Disposition: DC-01 TO HOME OR SELFCARE Is pt being admited?: No Does the pt Need Aspirin: No Condition: Stable Instructions: Costochondritis, [id number] Additional Instructions: EKG is within normal limits labs are stable. I would like for you to increase your potassium by eating bananas papaya drink. Take your medications as prescri bed and follow-up with a primary care provider Prescriptions: Naproxen [Naprosyn TAB] 500 mg PO BID #20 tablet Prednisone [predniSONE 5 mg (6-Day Pack, 21 Tabs)] 5 mg PO .TAPER #1 tab.ds.pk Referrals: PRIMARY MD CARL [Primary Care Provider] - 3-5 Days AUBRIE EUCEDA MD [Staff Physician] - 3-5 Days Forms: Work/School Release Form(ED)
[2020-12-07] MEDS ORDERED: dexAMETHasone 20 MG/5 ML VIAL IM ONE (23:02)
[2020-12-07] MEDS ORDERED: KETOROLAC 30 MG/1 ML INJ IM ONE (23:02)
--- NOTE | 2020-12-08 11:12 | Electrocardiograph Report ---
[facility] Test Date: 2020-12-07 Test Time: 19:30:17 Pat Name: WAYLON QUIÑONES Department: Room: Gender: F [employer] Cutting Machine Operator: MICHAEL : 1990 Requested By: FUENTES DIAZ III Order Number: [id number] Reading MD: Bernard Nam Measurements Intervals [place] Rate: 109 P: 70 PA: 130 QRS: 58 QRSD: 84 T: -27 QT: 319 QTc: 429 Interpretive Statements Sinus tachycardia Otherwise normal ECG Compared to ECG 12/01/2020 15:03:43 No significant change Electronically Signed On 12-08-2020 11:12:15 EDT by Bernard Nam
== END 2020-12-08 01:20 | disposition home or self-care (01) ==
LOC: ED 19:21
DX: M94.0 Chondrocostal junction syndrome [Tietze] (principal); J45.909 Unspecified asthma, uncomplicated; Z91.018 Allergy to other foods; Z88.8 Allergy status to other drugs, medicaments and biological substances; Z79.899 Other long term (current) drug therapy
CPT/HCPCS: 36415; 71046; 80053; 84484; 84703; 85025; 85379; 93005; 96372; 99283; J1100; J1885

== ENCOUNTER 2021-03-09 13:41 | Emergency (ER) | payer OTHER ==
[2021-03-09] MEDS ORDERED: diphenhydrAMINE 50 MG/ML VIAL IV ONE (14:28)
[2021-03-09] MEDS ORDERED: METOCLOPRAMIDE 10 MG/2 ML INJ IV ONE (14:28)
[2021-03-09] MEDS ORDERED: KETOROLAC 30 MG/1 ML INJ IV ONE (14:28)
[2021-03-09] MEDS ORDERED: SODIUM CHLORIDE 0.9% 1000 ML 1,000 ML IV ONE (14:28)
[2021-03-09] MEDS ORDERED: dexAMETHasone 20 MG/5 ML VIAL IV ONE (14:28)
--- NOTE | 2021-03-09 14:34 | Emergency Department Report ---
ED Headache HPI - General Chief Complaint: Nausea/Vomiting/Diarrhea Stated Complaint: VOMITING HEADACHE NAUSEA Time Seen by Provider: 03/09/21 14:13 Source: patient Exam Limitations: no limitations - History of Present Illness Initial Comments: 30 year old female with a recent diagnosis of migraine headaches after being seen by neurologist in January presents to the ER today with complaints of headache. Patient states that she has been having a constant headache for the past 2 days. She states that the headache is diffuse, but more so in the right retro-orbital area into the right parietal area and into the occipital scalp. She reports nausea, and she did vomit once this morning. She reports photophobia. She also reports that while driving to work today she felt dizzy and was having difficulty focusing. Patient states that when she saw her neurologist, Dr. Johnson, in January he prescribed her few medications including Topamax to take twice a day, magnesium to take daily, vitamin B2, tension headache medicine and Ubrelvy. She states that when she has a flareup, she is instructed to take the Ubrelvy and the one for tension headache. She states otherwise she has to take daily. She states that in the past 2 days she has been taking the once for the flareup but has not been helping. She has also been taking [id number] Tylenol. Patient states that she did have an MRI of her brain in January, and she was told by the neurologist that it showed that she had a lesion to the right parietal lobe, and there was question of a possible stroke. She states that she is scheduled to have a second MRI with contrast but this is not scheduled until April. Patient states that this headache feels different from her previous headaches and that is typically just mainly mainly one-sided in the left side of the right side of her head but never both together she states that headache does not typically last this long. She denies any URI symptoms, cough, recent head injury, neck pain, fever, chills, speech changes, focal weakness, numbness, tingling or any additional symptoms at this time. Timing/Duration: constant Quality: constant, throbbing Allergies/Adverse Reactions: Allergies coconut Allergy (Verified 12/01/20 11:28) Hives cyclobenzaprine [From Flexeril] Allergy (Verified 10/31/18 13:57) Anaphylaxis apolinar Allergy (Verified 12/01/20 11:28) Swelling Home Medications: Ambulatory Orders Albuterol Mdi (or & Nicu Only) [ProAir HFA Inhaler] 2 puff IH QID PRN #1 inhalation 10/31/18 Ondansetron [Zofran ODT TAB] 4 mg PO Q8HR PRN #15 tab.rapdis 03/09/21 ED Review of Systems ROS: Stated complaint: BP 90/55 VOMITING HEADACHE NAUSEA Other details as noted in HPI Comment: All other systems reviewed and negative Constitutional: denies: chills, fever Eyes: other (Positive photophobia). denies: eye pain, eye discharge, vision change ENT: denies: ear pain, throat pain, dental pain, hearing loss, epistaxis, congestion Respiratory: denies: cough, shortness of breath, SOB with exertion, SOB at rest, wheezing Cardiovascular: denies: chest pain, palpitations Endocrine: no symptoms reported Gastrointestinal: nausea, vomiting. denies: abdominal pain, diarrhea, constipation, hematemesis, hematochezia Genitourinary: denies: urgency, dysuria, frequency, hematuria, discharge, abnormal menses, dyspareunia Musculoskeletal: denies: back pain, joint swelling, arthralgia Skin: denies: rash, lesions Neurological: headache. denies: weakness, numbness, paresthesias, confusion, abnormal gait, vertigo Psychiatric: denies: anxiety, depression, auditory hallucinations, visual hallucinations, homicidal thoughts, suicidal thoughts Hematological/Lymphatic: denies: easy bleeding, easy bruising ED Past Medical Hx - Past Medical History Hx Asthma: Yes Additional medical history: Irregular menses, Costochondrosis - Surgical History Additional Surgical History: Left rotator cuff - Social History Smoking Status: Never Smoker Substance Use Type: None - Medications Home Medications: Home Medications Medication Instructions Recorded Confirmed Last Taken Type Albuterol Mdi (or & Nicu Only) 2 puff IH QID PRN #1 inhalation 10/31/18 Unknown Rx [ProAir HFA Inhaler] Ondansetron [Zofran ODT TAB] 4 mg PO Q8HR PRN #15 tab.rapdis 03/09/21 Unknown Rx ED Physical Exam - General Limitations: No Limitations General appearance: alert, in distress (Patient appears to be uncomfortable secondary to the headache and hiding away from the light.) - Head Head exam: Present: atraumatic, normocephalic - Eye Eye exam: Present: normal appearance, PERRL, EOMI Pupils: Present: normal accommodation, other (Positive photophobia) - ENT ENT exam: Present: normal exam, mucous membranes moist, TM's normal bilaterally - Neck Neck exam: Present: normal inspection, full ROM. Absent: tenderness, meningismus - Respiratory Respiratory exam: Present: normal lung sounds bilaterally. Absent: respiratory distress, wheezes, rales, rhonchi - Cardiovascular Cardiovascular Exam: Present: regular rate, normal rhythm, normal heart sounds - GI/Abdominal GI/Abdominal exam: Present: soft. Absent: distended, tenderness, guarding, rebound - Neurological Exam Neurological exam: Present: alert, oriented X3, CN II-XII intact, normal gait - Psychiatric Psychiatric exam: Present: normal affect, normal mood - Skin Skin exam: Present: intact ED Course Vital Signs 03/09/21 03/09/21 13:44 18:18 Temperature 99.7 F H 97.6 F Pulse Rate 87 83 Respiratory 20 18 Rate Blood Pressure 140/93 124/72 [Right] O2 Sat by Pulse 100 98 Oximetry ED Medical Decision Making - Lab Data Result diagrams: 03/09/21 14:59 03/09/21 16:53 - Medical Decision Making Patient reported she was feeling much better after IV medication and fluids but just prior to discharge she states that she feels like it is coming back. Patient was observed ambulating back and forth in the ER, with a normal gait. She has been observed playing on her phone. She is neurologically intact. She is not toxic or ill-appearing. She has no meningeal signs on exam. I suspect that headache is still likely related to her migraines. All labs reviewed and unremarkable including negative flu. At this time I do not suspect any acute intracranial bleed, or any other intracranial abnormality, TIA/CVA, meningitis or any other emergent conditions warranting testing at this time. Her vital si gns have been stable. Discussed with patient that I recommend that she follows up with her neurologist, try to call to see if she can get a sooner appointment, then the when she has scheduled for April. [facility], she feels like she needs a second opinion. In the meantime I recommended that she continue regular medications that she has for migraines. I will give zofran to help with nausea and vomiting. Patient expressed understanding of all instructions and agree with plan. Patient stable at time of discharge. Critical care attestation.: If time is entered above; I have spent that time in minutes in the direct care of this critically ill patient, excluding procedure time. ED Disposition Clinical Impression: Migraine headache Disposition: 01 HOME / SELF CARE / HOMELESS Is pt being admited?: No Does the pt Need Aspirin: No Condition: Stable Instructions: Migraine Headache, [id number] Additional Instructions: I recommend that you continue your regular medication regimen that was prescribed to you for your migraines. I do recommend calling your neurologist next week to see if you can get a sooner appointment. Return to ED if your symptoms changes or worsens in any way. Prescriptions: Ondansetron [Zofran ODT TAB] 4 mg PO Q8HR PRN #15 tab.rapdis PRN Reason: nausea/vomiting Referrals: BREANN JOHNSON MD [Staff Physician] - 3-5 Days Forms: Work/School Release Form(ED) Time of Disposition: 17:23
[2021-03-09 15:34] LABS: Basophils % (Auto) 0.7 % (0.0-1.8); Hematocrit 38.6 % (30.3-42.9); Hemoglobin 12.3 gm/dl (10.1-14.3); Lymphocytes # (Auto) 1.7 K/mm3 (1.2-5.4); Lymphocytes % (Auto) 36.2 % (13.4-35.0); Mean Corpuscular HGB Conc 32 % (30-34); Mean Corpuscular Volume 83 fl (79-97); Monocytes # (Auto) 0.3 K/mm3 (0.0-0.8); Monocytes % (Auto) 6.2 % (0.0-7.3); Platelet Count 244 K/mm3 (140-440); Red Blood Count 4.67 M/mm3 (3.65-5.03); Red Cell Distribution Width 14.8 % (13.2-15.2)
[2021-03-09 16:14] LABS: Alanine Aminotransferase 18 units/L (7-56); Albumin 4.2 g/dL (3.9-5); Blood Urea Nitrogen 7 mg/dL (7-17); Calcium 8.9 mg/dL (8.4-10.2); Hemolysis Index 407
[2021-03-09 16:16] LABS: BUN/Creatinine Ratio 12
[2021-03-09 17:21] LABS: Bacteria,Urine 1+ /HPF (Negative); Mucus,Urine FEW /HPF
[2021-03-09] MEDS ORDERED: BUTALB/ACETAMINOPHEN/CAFFEINE TAB PO ONE (17:37)
[2021-03-09 17:45] LABS: WBC,Urine < 1.0 /HPF (0.0-6.0)
[2021-03-09 17:46] LABS: Bilirubin,Urine NEG (Negative); Blood,Urine NEG (Negative); Color,Urine Yellow (Yellow); Protein,Urine <15 mg/dL mg/dL (Negative); Urobilinogen,Urine < 2.0 mg/dL (<2.0)
[2021-03-09 18:20] VITALS: BP 124/72
== END 2021-03-09 18:18 | disposition home or self-care (01) ==
LOC: ED 13:41
DX: G43.909 Migraine, unspecified, not intractable, without status migrainosus (principal); J45.909 Unspecified asthma, uncomplicated; Z91.018 Allergy to other foods; Z88.8 Allergy status to other drugs, medicaments and biological substances
CPT/HCPCS: 36415; 80053; 81001; 84132; 84703; 85025; 87400; 96361; 96374; 96375; 99283; J1100; J1200; J1885; J2765; J7030

== ENCOUNTER 2021-03-23 20:35 | Emergency (ER) | payer OTHER ==
[2021-03-23] MEDS ORDERED: ONDANSETRON 4 MG/2 ML INJ IV ONE (21:18)
[2021-03-23] MEDS ORDERED: MORPHINE 4 MG/1 ML INJ IV ONE ×2 (21:18→23:33)
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
[2021-03-23] MEDS ORDERED: diphenhydrAMINE 50 MG/ML VIAL IV ONE (21:42)
[2021-03-23] MEDS ORDERED: METOCLOPRAMIDE 10 MG/2 ML INJ IV ONE (21:42)
[2021-03-23] MEDS ORDERED: KETOROLAC 30 MG/1 ML INJ IV ONE (21:42)
[2021-03-23 21:46] LABS: Basophils % (Auto) 0.3 % (0.0-1.8); Eosinophils % (Auto) 0.3 % (0.0-4.3); Hematocrit 41.1 % (30.3-42.9); Hemoglobin 13.4 gm/dl (10.1-14.3); Lymphocytes # (Auto) 1.2 K/mm3 (1.2-5.4); Lymphocytes % (Auto) 11.5 % (13.4-35.0); Mean Corpuscular HGB Conc 33 % (30-34); Mean Corpuscular Volume 82 fl (79-97); Monocytes # (Auto) 0.5 K/mm3 (0.0-0.8); Monocytes % (Auto) 4.8 % (0.0-7.3); Platelet Count 240 K/mm3 (140-440); Red Blood Count 4.99 M/mm3 (3.65-5.03); Red Cell Distribution Width 14.8 % (13.2-15.2)
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
[2021-03-23] MEDS ORDERED: SODIUM CHLORIDE 0.9% 1000 ML 1,000 ML IV ONE (21:59)
[2021-03-23 22:06] LABS: Alanine Aminotransferase 19 units/L (7-56); Albumin 4.9 g/dL (3.9-5); Blood Urea Nitrogen 11 mg/dL (7-17); Calcium 9.5 mg/dL (8.4-10.2); Hemolysis Index 70
[2021-03-23 22:07] LABS: BUN/Creatinine Ratio 16
--- NOTE | 2021-03-23 22:59 | Cat Scan Report ---
CT head without contrast INDICATION : M.V.C., now with a headache. TECHNIQUE: Axial imaging performed from the skull apex through the skull base without the use of con trast. All CT scans at this location are performed using CT dose reduction for ALARA by means of aut omated exposure control. COMPARISON: None FINDINGS: Parenchyma: No mass, stroke or hemorrhage. Ventricles: Ventricles are normal in size and appear symmetric. Soft tissues: Soft tissues including the orbits appear normal. Bones: No acute osseous abnormality. Sinuses: Sinuses and mastoid air cells are clear. IMPRESSION: No acute abnormality. Signer Name: Kleber Saucedo MD Signed: 03/23/2021 10:55 PM Workstation Name: [id number]
--- NOTE | 2021-03-23 23:03 | Cat Scan Report ---
CT cervical spine wo con INDICATION: M.V.C., now with neck pain. TECHNIQUE: All CT scans at this location are performed using the following dose modulation technique: Automated exposure control. CONTRAST: None. COMPARISON: None available. FINDINGS: Satisfactory alignment without vertebral compression or significant degenerative change. No significant soft tissue injury. The lung apices are clear. IMPRESSION: No acute injury. Signer Name: Kleber Saucedo MD Signed: 03/23/2021 10:59 PM Workstation Name: [id number]
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
[2021-03-23 23:28] VITALS: BP 102/65
== END 2021-03-24 00:17 | disposition home or self-care (01) ==
LOC: ED 20:35
DX: S20.219A Contusion of unspecified front wall of thorax, initial encounter (principal); M79.18 Myalgia, other site; R10.12 Left upper quadrant pain; G43.909 Migraine, unspecified, not intractable, without status migrainosus; J45.909 Unspecified asthma, uncomplicated; V49.88XA Car occupant (driver) (passenger) injured in other specified transport accidents, initial encounter; Y93.89 Activity, other specified; Y92.89 Other specified places as the place of occurrence of the external cause; Y99.8 Other external cause status
CPT/HCPCS: 36415; 70450; 71260; 72125; 74177; 80053; 83690; 84703; 85025; 96361; 96374; 96375; 96376; 99284; J1200; J1885; J2270; J2405; J2765; J7030; Q9967; Q0162

== ENCOUNTER 2021-03-29 11:59 | Emergency (ER) | payer OTHER ==
[2021-03-29] MEDS ORDERED: SODIUM CHLORIDE 0.9% 1000 ML 1,000 ML IV ONE (12:37)
[2021-03-29] MEDS ORDERED: ONDANSETRON 4 MG/2 ML INJ IV ONE (12:37)
[2021-03-29] MEDS ORDERED: MORPHINE 4 MG/1 ML INJ IV ONE (12:37)
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
[2021-03-29 13:40] LABS: Hematocrit 38.2 % (30.3-42.9); Mean Corpuscular HGB Conc 32 % (30-34); Mean Corpuscular Volume 85 fl (79-97); Platelet Count 232 K/mm3 (140-440); Red Blood Count 4.48 M/mm3 (3.65-5.03); Red Cell Distribution Width 14.9 % (13.2-15.2)
[2021-03-29 13:42] LABS: INR 0.91 (0.87-1.13)
[2021-03-29 13:44] LABS: Alanine Aminotransferase 18 units/L (7-56); Albumin 4.4 g/dL (3.9-5); Blood Urea Nitrogen 9 mg/dL (7-17); Calcium 8.8 mg/dL (8.4-10.2); Hemolysis Index 7
[2021-03-29 13:45] LABS: BUN/Creatinine Ratio 15
--- NOTE | 2021-03-29 14:45 | Electrocardiograph Report ---
[facility] Test Date: 2021-03-29 Test Time: 13:26:33 Pat Name: WAYLON QUIÑONES Department: Room: Gender: F Geriatrician: KATELYNN : 1990 Requested By: OLLIE ARIZMENDI Order Number: [id number] Reading MD: Bernard Nam Measurements Intervals [place] Rate: 82 P: 50 CT: 154 QRS: 53 QRSD: 87 T: 29 QT: 360 QTc: 421 Interpretive Statements Sinus rhythm Nonspecific T wave abnormality Compared to ECG 12/07/2020 19:30:17 Sinus rate has slowed Electronically Signed On 03-29-2021 14:45:28 EST by Bernard Nam
[2021-03-29] MEDS ORDERED: PANTOPRAZOLE 40 MG TAB PO ONE (15:21)
--- NOTE | 2021-03-29 15:39 | Cat Scan Report ---
CTA CHEST WITH IV CONTRAST INDICATION: acute cp, aorta protocol 100 ML OMNI 350. TECHNIQUE: Axial CT images were obtained through the chest after injection of 100 cc Omni 350 IV contrast. 3 nkechi ne MIP reconstructions were produced. All CT scans at this location are performed using CT dose reduc tion for ALARA by means of automated exposure control. COMPARISON: None available. FINDINGS: PULMONARY ARTERIES: No pulmonary emboli. THORACIC AORTA: No acute abnormality. No aneurysm or dissection HEART: Normal. CORONARY ARTERIES: No significant calcification. PLEURA: No pleural effusion. No pneumothorax. LYMPH NODES: No significant adenopathy. LUNGS: No acute air space or interstitial disease. ADDITIONAL FINDINGS: None. UPPER ABDOMEN: No acute findings. Numerous tiny hepatic cysts with larger 2 cm cyst left lateral hepa tic segment SKELETAL STRUCTURES: No significant osseous abnormality. IMPRESSION: 1. No CT evidence for thoracic aortic dissection or pulmonary embolism. 2. No acute findings. Signer Name: Ricky Berman MD Signed: 03/29/2021 3:34 PM Workstation Name: [id number]
--- NOTE | 2021-03-29 15:54 | Cat Scan Report ---
CT OF THE ABDOMEN AND PELVIS WITH INTRAVENOUS CONTRAST INDICATION / CLINICAL INFORMATION: Acute abdominal pain and back pain. TECHNIQUE: The patient received 100 cc Omnipaque [address] scans at this location are performed using CT dose reduction for ALARA by means of automated exposure control. COMPARISON: 03/23/21. FINDINGS: ABDOMEN: There are innumerable cysts scattered throughout the liver, the largest of which measures 2 cm in the lateral segment of the left lobe. The gallbladder, bile ducts, pancreas, spleen, adrenal gl ands, kidneys and bowel demonstrate no significant abnormality. The abdominal aorta is normal. No sindy nopathy is present. The lung bases are clear. PELVIS: The distal ureters and urinary bladder are normal. There is a 3 cm subserosal fibroid in the left uterine body/fundus, unchanged. Minimal free fluid in the cul-de-sac is present, significantly i mproved. A normal appendix is present and there is no evidence of diverticulitis. I do not identify a hernia. No acute osseous abnormality is seen. IMPRESSION: 1. No acute abnormality or significant change. 2. 3.3 cm subserosal fibroid in the uterine fundus/body on the left. Depending on clinical findings, transvaginal pelvic ultrasound may be helpful in further characterization.. Signer Name: Thad Cates MD Signed: 03/29/2021 3:50 PM Workstation Name: [id number]
[2021-03-29 16:10] VITALS: BP 123/66
== END 2021-03-29 16:11 | disposition home or self-care (01) ==
LOC: ED 11:59
DX: R07.89 Other chest pain (principal); R10.9 Unspecified abdominal pain; M54.9 Dorsalgia, unspecified; Z91.018 Allergy to other foods; Z88.8 Allergy status to other drugs, medicaments and biological substances; J45.909 Unspecified asthma, uncomplicated
CPT/HCPCS: 36415; 71275; 74177; 80053; 82550; 83690; 83735; 84484; 84702; 85027; 85610; 93005; 96361; 96374; 96375; 99284; J2270; J2405; J7030; Q9967; Q0162